=== PATIENT | male | born 1985 | race Hispanic/Latino ===

== ENCOUNTER 2018-12-10 08:14 | Day surgery (SDC) | payer MEDICAID ==
--- NOTE | 2018-12-10 09:07 | Anesthesia Day of Surgery ---
Anesthesia Day of Surgery - Day of Surgery Patient Examined: Yes Patient H&P Reviewed: Yes Patient is NPO: Yes
--- NOTE | 2018-12-10 09:15 | Anesthesia Consultation ---
Anesthesia Consult and Med Hx Date of service: 12/10/18 - Airway Anesthetic Teeth Evaluation: Good ROM Head & Neck: Adequate Mental/Hyoid Distance: Adequate Mallampati Class: Class III Intubation Access Assessment: Probably Good - Pre-Operative Health Status ASA Pre-Surgery Classification: ASA3 Proposed Anesthetic Plan: General - Pulmonary Hx Smoking: Yes (1/2 PPD X 17 YRS) Hx Sleep Apnea: No (SANJIV PRE SCREEN LOW RISK) - Cardiovascular System Hx Peripheral Vascular Disease: Yes (Blocked R carotid artery) - Central Nervous System Hx Seizures: Yes (HAD VAGUS NERVE STIMULATOR TO HELP REDUCE SEIZURES. Last one 4/5) Hx Back Pain: Yes (FROM STONE) - Other Systems Hx Substance Use: Yes (MARIJUANA) Hx Cancer: No
[2018-12-10] MEDS ORDERED: SUBLIMAZE IV PRN (09:30)
[2018-12-10] MEDS ORDERED: ZOFRAN IV PRN (09:30)
[2018-12-10] MEDS ORDERED: TYLENOL PO NR (09:30)
[2018-12-10] MEDS ORDERED: ANCEF/STERILE WATER 2 GM/20 ML IV NR (10:00)
[2018-12-10] MEDS ORDERED: LACTATED RINGERS 1,000 ML IV SCH (10:00)
[2018-12-10] MEDS ORDERED: DIPRIVAN 10 MG/ML IV ONE (11:22)
[2018-12-10] MEDS ORDERED: SUBLIMAZE ONE ×2 (11:22→12:28)
[2018-12-10] MEDS ORDERED: VERSED IV ONE (11:53)
[2018-12-10] MEDS ORDERED: XYLOCAINE MPF 2% ONE (12:28)
--- NOTE | 2018-12-10 12:38 | Short Stay Summary ---
Short Stay Documentation Date of service: 12/10/18 - History H&P: obtained from office - Allergies and Medications Current Medications: Allergies phenytoin [From Dilantin] Adverse Reaction (Verified 12/10/18 09:11) Headache Home Medications Medication Instructions Recorded Confirmed Last Taken Type Clopidogrel Bisulfate [Plavix] 75 mg PO DAILY 10/12/13 12/10/18 12/01/18 09:[address] [Depakote] 500 mg PO QAM 10/12/13 12/10/18 12/10/18 06:30 History levETIRAcetam [Keppra] 1,000 mg PO BID 10/12/13 12/10/18 12/10/18 06:30 History Acetaminophen/Codeine [Tylenol 1 tab PO Q4HR PRN 12/04/18 12/04/18 Unknown History /Codeine # 3 tab] Clobazam [Onfi] 20 mg PO QAM 12/04/18 12/10/18 12/10/18 06:30 History Ondansetron [Zofran TAB] 4 mg PO Q8HR PRN 12/04/18 12/04/18 Unknown History QUEtiapine [SEROquel] 50 mg PO QHS 12/04/18 12/10/18 12/09/18 20:00 History Clobazam [Onfi] 30 mg PO QHS 12/07/18 12/10/18 12/09/18 20:00 History Divalproex ER [DepaKOTE ER] 1,000 mg PO QHS 12/07/18 12/10/18 12/09/18 20:00 History Active Medications Acetaminophen (Tylenol) 650 mg PO ONCE NR Stop: 12/10/18 20:00 Last Admin: 12/10/18 09:25 Dose: 650 mg Documented by: Cefazolin Sodium (Ancef/Sterile Water 2 Gm/20 Ml) 2 gm IV PREOP NR Stop: 12/10/18 16:00 Celecoxib (Celebrex) 200 mg PO PREOP NR Stop: 12/10/18 18:00 Last Admin: 12/10/18 09:25 Dose: 200 mg Documented by: Fentanyl (Sublimaze) 50 mcg IV Q5MIN PRN PRN Reason: Pain , Severe (7-10) Stop: 12/10/18 16:00 Lactated Ringer's (Lactated Ringers) 1,000 mls @ 125 mls/hr IV DIRECT BESS Last Admin: 12/10/18 09:25 Dose: 125 mls/hr Documented by: Ondansetron HCl (Zofran) 4 mg IV ONCE PRN PRN Reason: Nausea And Vomiting - Brief post op/procedure progress note Date of procedure: 12/10/18 Pre-op diagnosis: left renal sotne 8mm Post-op diagnosis: same Procedure: ESWL Anesthesia: GETA Surgeon: MIK MENDOZA Estimated blood loss: none Condition: stable - Hospital course Hospital course: Tylenol #3 & post op info on chart - Disposition Condition at discharge: Stable Short Stay Discharge Plan Follow up with: CHRISTINE GARRETT JR, MD [Primary Care Provider] - 7 Days
--- NOTE | 2018-12-10 13:29 | Operative Report ---
PREOPERATIVE DIAGNOSIS: Left renal stone, 8 mm. POSTOPERATIVE DIAGNOSIS: Left renal stone, 8 mm. PROCEDURE: Left extracorporal shock wave lithotripsy. SURGEON: Dilan Machado M.D. ANESTHESIA: General. ESTIMATED BLOOD LOSS: Minimal. FLUIDS: Crystalloid. COMPLICATIONS: No complications. INDICATIONS: This patient is a 33-year-old gentleman seen by Dr. Hoffmann in the office. He was found to have left 8 mm stone. Discussed options. He has had a history of a brain aneurysm and epilepsy. He was cleared from his neurosurgeon to proceed with surgical intervention. DESCRIPTION OF PROCEDURE: The patient was taken to the operative suite, placed in a supine position. After adequate general anesthesia, his stone was localized in 2 planes using fluoroscopy. Extracorporal shock wave lithotripsy was administered with a maximum kV of 7 2500 shocks. A 5-minute renal pause after 200 shocks was performed. Adequate fragmentation could be appreciated. He tolerated the procedure well, he was extubated and taken to recovery room. He will go home on Tylenol No. 3 and follow up in the office. JOB# [id number] KIM/VINNY
[2018-12-10 13:53] VITALS: BP 108/63
== END 2018-12-10 14:24 | disposition home or self-care (01) ==
LOC: OR 08:14
PROVIDERS: ATTEND Urology
DX: N20.0 Calculus of kidney (principal); G40.909 Epilepsy, unspecified, not intractable, without status epilepticus; I73.9 Peripheral vascular disease, unspecified; K21.9 Gastro-esophageal reflux disease without esophagitis; F41.9 Anxiety disorder, unspecified; F17.210 Nicotine dependence, cigarettes, uncomplicated; Z87.440 Personal history of urinary (tract) infections; Z88.8 Allergy status to other drugs, medicaments and biological substances; Z79.899 Other long term (current) drug therapy; Z98.890 Other specified postprocedural states
CPT/HCPCS: 50590; J0690; J2250; J2704; J3010; J7120